=== PATIENT | male | born 1940 | race African-American/Black ===

== ENCOUNTER 2016-05-11 08:54 | Emergency (ER) | payer MEDICARE, BC ==
[~2016-05-11] VITALS: Ht 182.9 cm; Wt 79.0 kg
[2016-05-11] MEDS ORDERED: LORA1TAB PO (09:29)
[2016-05-11] MEDS ORDERED: ALLO100T PO (09:29)
[2016-05-11] MEDS ORDERED: AMIODARONE (09:29)
[2016-05-11] MEDS ORDERED: MIRT15TA PO (09:29)
[2016-05-11] MEDS ORDERED: WARF3TAB27 PO (09:29)
[2016-05-11] MEDS ORDERED: ENTRESTO (09:29)
[2016-05-11] MEDS ORDERED: SITA50TA3 PO (09:29)
[2016-05-11] MEDS ORDERED: ATOR10TA69 PO (09:29)
[2016-05-11] MEDS ORDERED: MELA5TAB3 PO (09:29)
[2016-05-11] MEDS ORDERED: BUME0.5T3 PO (09:29)
[2016-05-11] MEDS ORDERED: INSPRA (09:29)
[2016-05-11] MEDS ORDERED: GLIP5TAB12 PO (09:29)
[2016-05-11] MEDS ORDERED: CARV25TA47 PO (09:29)
[2016-05-11] MEDS ORDERED: LIDOCAINE HCL 1% 20ML VIAL (Pyxis) INJ MC ONE (10:00)
[2016-05-11] MEDS ORDERED: BACITRACIN ZINC OINT UDPKT TOP ONE (10:00)
[2016-05-11] MEDS ORDERED: KETOROLAC 30MG/ML VIAL IM ONE (10:00)
[2016-05-11 10:01] VITALS: BP 157/79
== END 2016-05-11 11:10 | disposition home or self-care (01) ==
LOC: ER 09:39
DX: L02.811 Cutaneous abscess of head [any part, except face] (principal); I50.9 Heart failure, unspecified; I48.91 Unspecified atrial fibrillation; N28.89 Other specified disorders of kidney and ureter; Z95.0 Presence of cardiac pacemaker; Z79.899 Other long term (current) drug therapy; Z79.01 Long term (current) use of anticoagulants; Z98.890 Other specified postprocedural states
CPT/HCPCS: 10060; 96372; 99283; J1885; J3490